=== PATIENT | female | born 1945 | race Caucasian/White ===

== ENCOUNTER 2021-03-01 14:18 | Emergency (ER) | payer OTHER ==
[2021-03-01 17:01] LABS: EOSINOPHIL 2.5 % (0-7); HCT 38.8 % (37.0-47.0); HGB 12.7 g/dl (12.5-16.0); LYMPHOCYTE 39.7 % (15-48); MCH 30.9 pg (25.0-31.0); MCHC 32.7 g/dL (32.0-36.0); MCV 94.4 fL (78.0-100.0); MONOCYTE 7.4 % (0-12); NEUTROPHIL 49.3 % (41-80); NRBC 0; PLT 235 K/uL (150-400); RBC 4.11 M/uL (4.20-5.40); RDW 12.2 % (11.5-14.0); WBC 7.2 K/uL (4.0-10.5)
[2021-03-01 17:21] LABS: ALBUMIN 3.4 g/dL (3.4-5.0); BILIRUBIN - TOTAL 0.5 mg/dL (0.2-1.0); BUN/CREAT RATIO (CALC) 17.1 RATIO; CREATININE 1.4 mg/dL (0.51-0.95); GLOBULIN (CALCULATION) 3.5 g/dL; MAGNESIUM 2.1 mg/dL (1.8-2.4); POTASSIUM 4.4 mmol/L (3.5-5.1); TOTAL PROTEIN 6.9 g/dL (6.4-8.2)
[2021-03-01 19:23] LABS: INR 1.05 (0.9-1.2); PROTHROMBIN TIME 13.1 SECONDS (11.8-13.4)
[2021-03-02 07:14] LABS: BASOPHIL 0.8 % (0-2); EOSINOPHIL 2.7 % (0-7); HCT 39.4 % (37.0-47.0); HGB 12.8 g/dl (12.5-16.0); LYMPHOCYTE 42.5 % (15-48); MCH 30.9 pg (25.0-31.0); MCHC 32.5 g/dL (32.0-36.0); MCV 95.2 fL (78.0-100.0); MPV 9.8 fL (6.0-9.5); NEUTROPHIL 46.7 % (41-80); NRBC 0; PLT 242 K/uL (150-400); RBC 4.14 M/uL (4.20-5.40); RDW 12.1 % (11.5-14.0); WBC 6.6 K/uL (4.0-10.5)
[2021-03-02 07:19] LABS: INR 1.07 (0.9-1.2); PROTHROMBIN TIME 13.3 SECONDS (11.8-13.4)
[2021-03-02 07:20] LABS: PTT 56.2 SECONDS (24.4-34.7)
[2021-03-02 07:27] LABS: BUN/CREAT RATIO (CALC) 16.8 RATIO; CREATININE 1.25 mg/dL (0.51-0.95); POTASSIUM 3.9 mmol/L (3.5-5.1)
== END 2021-03-02 09:44 | disposition other institution (70) ==
LOC: FER 14:18
PROVIDERS: Emergency Medicine; Emergency Medicine Emergency Medical Services
DX: I82.220 Acute embolism and thrombosis of inferior vena cava (principal); I10 Essential (primary) hypertension; Z88.8 Allergy status to other drugs, medicaments and biological substances; Z20.822 Contact with and (suspected) exposure to COVID-19
CPT/HCPCS: 36415; 80048; 80053; 83690; 83735; 84145; 85025; 85379; 85610; 85730; J1644; J7030; U0002